=== PATIENT | female | born 1950 | race Caucasian/White ===

== ENCOUNTER 2023-05-20 15:38 | Inpatient (IN) ==
[2023-05-20 16:47] LABS: Basophils # (Auto) 0.02 K/mcL (0.00-0.30); Basophils % (Auto) 0.1 % (0.0-2.0); Eosinophils # (Auto) 0.04 K/mcL (0.00-0.70); Eosinophils % (Auto) 0.2 % (0.0-7.0); Hematocrit 34.4 % (34.1-44.9); Hemoglobin 10.7 g/dL (11.2-15.7); Lymphocytes # (Auto) 0.61 K/mcL (1.50-4.80); Lymphocytes % (Auto) 3.1 % (15.5-49.0); Mean Cell Volume 99.7 fL (80.0-100.0); Mean Corpuscular HGB Conc 31.1 g/dL (31.0-36.0); Mean Platelet Volume 9.3 fL (8.8-12.5); Monocytes # (Auto) 0.55 K/mcL (0.10-0.90); Monocytes % (Auto) 2.8 % (1.0-12.0); Neutrophils % (Auto) 93.6 % (38.0-78.0); Platelet Count 208 K/mcL (140-440); RBC 3.45 M/mcL (3.59-5.38); Red Cell Distribution Width 13.8 % (11.5-14.5); WBC 19.6 K/mcL (4.5-11.0)
[2023-05-20 16:50] LABS: ALT/SGPT 44 U/L (<40); AST/SGOT 26 U/L (<32); Albumin 3.1 gm/dL (3.2-5.2); Albumin/Globulin Ratio 1.6 (1.0-2.3); Alkaline Phosphatase 78 U/L (39-117); Bilirubin,Total < 0.2 mg/dL (0.1-1.0); Blood Urea Nitrogen 29 mg/dL (8-23); Calcium 8.5 mg/dL (8.6-10.4); Carbon Dioxide 24 mmol/L (22-30); Chloride 104 mmol/L (96-108); Globulin 1.9 gm/dL (2.2-3.7); Glomerular Filtration Rate 129; Glucose 168 mg/dL (70-105)
[2023-05-20] MEDS: cefTRIAXone 1 GM VIAL IV ONE (18:10)
[2023-05-20] MEDS: AZITHROMYCIN 500 MG in DEXTROSE 5% IN WATER 250 ML IV ONE (18:10)
[2023-05-20 18:26] LABS: INR 1.1 (0.9-1.1); Prothrombin Time 14.8 sec (11.9-14.5)
[2023-05-20 19:11] LABS: Appearance,Urine CLOUDY (Clear); Bacteria,Urine FEW /hpf (0); Bilirubin,Urine Negative (Negative); Color,Urine YELLOW; Culture Indicated,Urine Yes; Glucose,Urine (UA) Negative (Negative); Ketones,Urine Negative (Negative); Leukocyte Esterase,Urine 250 /uL (Negative); Mucus,Urine FEW /hpf; Nitrate,Urine POS (Negative); Protein,Urine 30 mg/dL (Negative); Specific Gravity,Urine 1.015 (1.000-1.035); Triple Phosphate Crystal,Urine MOD /hpf; Urine Amorphous Crystals FEW /hpf; Urine Blood Negative (Negative); Urine RBC 0 /hpf (0-3); Urine Squamous Epithelial Cell 2 /hpf (0-4); Urine WBC 62 /hpf (0-4); Urobilinogen,Urine Negative
[2023-05-20] MEDS ORDERED: ONDANSETRON 4 MG/2 ML VIAL IV PRN (20:51)
[2023-05-20] MEDS ORDERED: hydrALAZINE 20 MG/ML VIAL IV PRN (20:51)
[2023-05-20] MEDS ORDERED: IPRATROPIUM/ALBUTEROL 3 ML AMPUL.NEB NEB PRN (20:51)
[2023-05-20] MEDS ORDERED: cloNIDine HCL 0.1 MG TABLET PO PRN (20:51)
[2023-05-20] MEDS ORDERED: guaiFENesin/DEXTROMETHORPHAN 5ML UD CUP PO PRN (20:51)
[2023-05-20] MEDS: 0.9 % SODIUM CHLORIDE 1,000 ML IV SCH (21:10)
[2023-05-20] MEDS: POTASSIUM CHLORIDE 20 MEQ in DEXTROSE 5% IN WATER 250 ML IV SCH (21:14)
[2023-05-20] MEDS: DOCUSATE SODIUM 100 MG CAPSULE PO SCH (21:14)
[2023-05-20] MEDS: SENNOSIDES 1 TABLET PO SCH (21:26)
[2023-05-20] MEDS: POTASSIUM CHLORIDE 20 MEQ/10 ML VIAL IV ONE (21:29)
[2023-05-20] MEDS: CARBAMAZEPINE 400 MG PO SCH (21:31)
[2023-05-20] MEDS ORDERED: NON FORMULARY MEDICATION 1 DOSE MISCELL (Acetaminophen 325 mg capsule) PO PRN (21:34)
[2023-05-20] MEDS: busPIRone 5 MG TABLET PO SCH (22:01)
[2023-05-20] MEDS: BACLOFEN 10 MG TABLET PO SCH (22:01)
[2023-05-20] MEDS: 0.9 % SODIUM CHLORIDE 10 ML SYRINGE IV SCH (22:02)
[2023-05-20] MEDS: GABAPENTIN 300 MG CAPSULE PO SCH (22:02)
[2023-05-21] MEDS: morphine 4 MG/ML VIAL IV PRN (04:14)
[2023-05-21] MEDS: HYDROcodone/APAP 10/325MG TABLET PO PRN (05:08)
[2023-05-21 05:23] LABS: Basophils # (Auto) 0.01 K/mcL (0.00-0.30); Basophils % (Auto) 0 % (0.0-2.0); Eosinophils # (Auto) 0.15 K/mcL (0.00-0.70); Eosinophils % (Auto) 0.7 % (0.0-7.0); Hematocrit 38.8 % (34.1-44.9); Hemoglobin 11.8 g/dL (11.2-15.7); Lymphocytes # (Auto) 1.04 K/mcL (1.50-4.80); Mean Cell Volume 99.5 fL (80.0-100.0); Mean Corpuscular HGB Conc 30.4 g/dL (31.0-36.0); Mean Platelet Volume 9.3 fL (8.8-12.5); Monocytes # (Auto) 0.89 K/mcL (0.10-0.90); Monocytes % (Auto) 4.2 % (1.0-12.0); Neutrophils % (Auto) 89.9 % (38.0-78.0); Platelet Count 229 K/mcL (140-440); Red Cell Distribution Width 13.6 % (11.5-14.5)
[2023-05-21 05:54] LABS: ALT/SGPT 35 U/L (<40); AST/SGOT 18 U/L (<32); Albumin 3.3 gm/dL (3.2-5.2); Albumin/Globulin Ratio 1.3 (1.0-2.3); Alkaline Phosphatase 85 U/L (39-117); Bilirubin,Total 0.2 mg/dL (0.1-1.0); Blood Urea Nitrogen 12 mg/dL (8-23); Calcium 9.4 mg/dL (8.6-10.4); Carbon Dioxide 25 mmol/L (22-30); Chloride 101 mmol/L (96-108); Globulin 2.5 gm/dL (2.2-3.7); Glomerular Filtration Rate 129; Glucose 133 mg/dL (70-105)
[2023-05-21] MEDS: OMEPRAZOLE 20 MG CAPSULE PO SCH (07:41)
[2023-05-21] MEDS: BACLOFEN 10 MG TABLET PO SCH (08:28)
[2023-05-21] MEDS: FERROUS SULFATE 325 MG TABLET PO SCH (08:28)
[2023-05-21] MEDS: ENOXAPARIN 40 MG/0.4 ML SYRINGE SQ SCH (08:28)
[2023-05-21] MEDS: VITAMIN D3 25 MCG TABLET PO SCH (08:28)
[2023-05-21] MEDS: PARoxetine 20 MG TABLET PO SCH (08:28)
[2023-05-21] MEDS: ASCORBIC ACID 500 MG TABLET PO SCH (08:28)
[2023-05-21] MEDS: AZITHROMYCIN 500 MG in DEXTROSE 5% IN WATER 250 ML IV SCH (08:35)
[2023-05-21] MEDS ORDERED: DOCUSATE SODIUM 100 MG CAPSULE PO SCH (09:00)
[2023-05-21] MEDS: IPRATROPIUM/ALBUTEROL 3 ML AMPUL.NEB NEB SCH (09:16)
[2023-05-21] MEDS: cefTRIAXone 1 GM VIAL IV SCH (09:47)
[2023-05-21] MEDS: CARBAMAZEPINE 400 MG PO SCH (10:29)
[2023-05-21] MEDS: 0.9 % SODIUM CHLORIDE 250 ML IV ONE (15:20)
[2023-05-21] MEDS: 0.9 % SODIUM CHLORIDE 1,000 ML IV SCH (16:49)
[2023-05-21] MEDS: GLATIRAMER ACETATE 40 MG/ML SC SCH (20:16)
[2023-05-21] MEDS ORDERED: IPRATROPIUM/ALBUTEROL 3 ML AMPUL.NEB NEB SCH (21:00)
[2023-05-22] MEDS: ACETAMINOPHEN 325 MG TABLET PO PRN (01:36)
[2023-05-22 06:32] LABS: ALT/SGPT 23 U/L (<40); AST/SGOT 15 U/L (<32); Albumin 2.8 gm/dL (3.2-5.2); Albumin/Globulin Ratio 1.3 (1.0-2.3); Alkaline Phosphatase 89 U/L (39-117); Bilirubin,Direct < 0.2 mg/dL (0-0.3); Bilirubin,Total 0.2 mg/dL (0.1-1.0); Blood Urea Nitrogen 6 mg/dL (8-23); Calcium 9.3 mg/dL (8.6-10.4); Carbon Dioxide 27 mmol/L (22-30); Chloride 101 mmol/L (96-108); Globulin 2.1 gm/dL (2.2-3.7); Glomerular Filtration Rate 129; Glucose 112 mg/dL (70-105); Lactate Dehydrogenase 181 U/L (135-225); Phosphorous 1.4 mg/dL (2.5-4.5); Triglycerides 88 mg/dL (<150); Uric Acid 2.4 mg/dL (2.5-8.0)
[2023-05-22 07:24] LABS: Basophils # (Auto) 0.03 K/mcL (0.00-0.30); Basophils % (Auto) 0.3 % (0.0-2.0); Eosinophils # (Auto) 0.19 K/mcL (0.00-0.70); Eosinophils % (Auto) 1.7 % (0.0-7.0); Hematocrit 31.1 % (34.1-44.9); Hemoglobin 9.6 g/dL (11.2-15.7); Lymphocytes # (Auto) 1.19 K/mcL (1.50-4.80); Lymphocytes % (Auto) 10.4 % (15.5-49.0); Mean Cell Volume 101.6 fL (80.0-100.0); Mean Corpuscular HGB Conc 30.9 g/dL (31.0-36.0); Mean Platelet Volume 9.5 fL (8.8-12.5); Monocytes # (Auto) 0.64 K/mcL (0.10-0.90); Monocytes % (Auto) 5.6 % (1.0-12.0); Neutrophils % (Auto) 81.9 % (38.0-78.0); Platelet Count 203 K/mcL (140-440); RBC 3.06 M/mcL (3.59-5.38); Red Cell Distribution Width 13.6 % (11.5-14.5); WBC 11.4 K/mcL (4.5-11.0)
[2023-05-22] MEDS: NEUTRA PHOS 1 PACKET PO SCH (08:56)
[2023-05-22] MEDS: POTASSIUM PHOSPHATE 40 MEQ in DEXTROSE 5% IN WATER 500 ML IV ONE (10:15)
[2023-05-22] MEDS ORDERED: HYDROcodone/APAP 10/325MG TABLET PO PRN (10:22)
[2023-05-22] MEDS: ALBUMIN HUMAN 12.5 GM/50 ML VIAL IV ONE (10:54)
[2023-05-22] MEDS: FUROSEMIDE 20 MG/2 ML VIAL IV ONE ×2 (10:54→11:19)
[2023-05-23 06:48] LABS: ALT/SGPT 22 U/L (<40); AST/SGOT 13 U/L (<32); Albumin 3.2 gm/dL (3.2-5.2); Albumin/Globulin Ratio 1.3 (1.0-2.3); Alkaline Phosphatase 77 U/L (39-117); Bilirubin,Direct < 0.2 mg/dL (0-0.3); Bilirubin,Total < 0.2 mg/dL (0.1-1.0); Blood Urea Nitrogen 8 mg/dL (8-23); Calcium 9.4 mg/dL (8.6-10.4); Carbon Dioxide 28 mmol/L (22-30); Chloride 96 mmol/L (96-108); Globulin 2.5 gm/dL (2.2-3.7); Glomerular Filtration Rate 129; Glucose 99 mg/dL (70-105); Lactate Dehydrogenase 123 U/L (135-225); Phosphorous 2.5 mg/dL (2.5-4.5); Triglycerides 95 mg/dL (<150); Uric Acid 2.3 mg/dL (2.5-8.0)
[2023-05-23 07:44] LABS: Basophils # (Auto) 0.05 K/mcL (0.00-0.30); Basophils % (Auto) 0.8 % (0.0-2.0); Eosinophils # (Auto) 0.26 K/mcL (0.00-0.70); Eosinophils % (Auto) 4.2 % (0.0-7.0); Hematocrit 32.1 % (34.1-44.9); Lymphocytes # (Auto) 1.28 K/mcL (1.50-4.80); Lymphocytes % (Auto) 20.7 % (15.5-49.0); Mean Cell Volume 98.2 fL (80.0-100.0); Mean Corpuscular HGB Conc 31.2 g/dL (31.0-36.0); Mean Platelet Volume 9.5 fL (8.8-12.5); Monocytes # (Auto) 0.41 K/mcL (0.10-0.90); Monocytes % (Auto) 6.6 % (1.0-12.0); Neutrophils % (Auto) 67.5 % (38.0-78.0); Platelet Count 240 K/mcL (140-440); RBC 3.27 M/mcL (3.59-5.38); Red Cell Distribution Width 13.2 % (11.5-14.5); WBC 6.2 K/mcL (4.5-11.0)
[2023-05-23] MEDS: FUROSEMIDE 20 MG/2 ML VIAL IV ONE (10:41)
[2023-05-23] MEDS: ALBUMIN HUMAN 12.5 GM/50 ML VIAL IV ONE (10:41)
== END 2023-05-23 11:30 | DRG 871 ==
LOC: ED 15:38 → ICU 20:47 → MEDSUR 05-22 14:05
PROVIDERS: ADMIT Internal Medicine; ATTEND Internal Medicine